=== PATIENT | male | born 2000 | race African-American/Black ===

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

== ENCOUNTER 2020-10-28 17:57 | Emergency (ER) | payer BC, OTHER ==
[~2020-10-28] VITALS: Ht 170.2 cm; Wt 65.0 kg
[~2020-10-28 17:57] MED LIST: OMEP20TA63 PO; ONDA4TAB10 SL
--- NOTE | 2020-10-28 18:53 | PHYS DOC ---
Past Medical History Past Medical History: No Pertinent History Past Surgical History: No Surgical History Smoking Status: Never Smoker Alcohol Use: None Drug Use: None General Adult EDM: Chief Complaint: SUICDAL IDEATION HPI: HPI: Patient is a 20 year old -[place] male with histories of alcohol depe ndence, tobacco use disorder, with previous attempt of suicide by taking a handful of pills, presents for suicidal ideation with a plan. According to the patient and his father patient had chronic history of alcohol dependence and was in a rehabilitation facility in [place] for a month in September and just came back around a week ago. She reports that he wants to get better and he did not touch any alcohol when he was in the rehabilitation facility. However after he came back he eats very easy to get access to alcohol and patient has been drinking every day nonstop. Patient reports that earlier today he drank a bottle of vodka and a few bottles of beer. Patient states he has thoughts of shooting himself in the head. About a month ago patient had taken a handful of pills try to commit suicide but he ended up throwing everything up. Patient denies any current medication used, endorses tobacco use, denies any recreational substance use. In addition patient reports 3-day history of left- sided pain alongside of his lateral rib. Patient denies any recent trauma, and reports that the pain just comes on spontaneously. Patient denies fever, chills, shortness of breath, abdominal pain, diarrhea constipation, or, dysuria. Patient is his own historian. Father is at bedside. Review of Systems: Review of Systems: Review of systems: Constitutional symptoms- No fever, no chills. Eyes- No Discharge, No Visual Loss Respiratory symptoms- No shortness of breath, No wheezing, No Dyspnea on Exertion Cardiovascular Systems; No chest pain, No Palpitations, No syncope Gastrointestinal symptoms: NO abdominal pain, no nausea, no vomiting or diarrhea. Genitourinary symptoms: No dysuria. Musculoskeletal symptoms: No back pain No extremity pain, patient endorsed left-sided pain along his rib cage. NEUROLOGICAL Symptoms: No headache, no generalized weakness; No focal Weakness Psychiatric: Endorses SI with a plan, denies HI Heart Score: C/O Chest Pain: No Risk Factors: Risk Factors: DM, Current or recent (<one month) smoker, HTN, HLP, family history of CAD, obesity. Risk Scores: Score 0 - 3: 2.5% MACE over next 6 weeks - Discharge Home Score 4 - 6: 20.3% MACE over next 6 weeks - Admit for Clinical Observation Score 7 - 10: 72.7% MACE over next 6 weeks - Early Invasive Strategies Allergies: Allergies: Allergies Coded Allergies Type Severity Reaction Last Updated Verified No Known Drug Allergies 07/06/17 No Physical Exam: PE: General: alert, no acute distress. Skin: warm, dry and intact. Head:: Normocephalic, atraumatic. Neck: Trachea midline. Eyes: EOMI, Normal conjunctiva, No drainage CARDIOVASCULAR: Regular rate and rhythm RESPIRATORY: No respiratory distress Back: Full range of motion. MUSCULOSKELETAL: Full range of motion of bilateral upper and lower extremities. GASTROINTESTINAL: Abdomen soft without rebound or guarding. NEUROLOGICAL: Alert and noted to person, place and time. No neurological deficits observed Psychiatric: Cooperative. Patient has suicidal ideation with a plan EKG: EKG: [] Radiology/Procedures: Radiology/Procedures: [] Course & Med Decision Making: Course & Med Decision Making Pertinent Labs and Imaging studies reviewed. (See chart for details) []Patient was evaluated by PAT team. Patient with a safety plan that has been put in place. Patient CURRENTLY denies current SI thoughts. (2038) Patient did state he had access to gun---- family member has retrieved gun. Patient NO LONGER has access to firearm. Patient will be discharged charged home to [facility] where she can watch him until his flight to rehab tomorrow afternoon. Patient initial flight to [place] reh tomorrow 5pm -- flight has been changed to 3pm. Patient will be discharged home in care of father with plan to have patient stay at [facility] until 3pm flight. Mariel Disclaimer: Mariel Disclaimer: This electronic medical record was generated, in whole or in part, using a voice recognition dictation system. Departure Departure Impression: Primary Impression: Suicidal ideation Additional Impression: Intoxication Disposition: 01 DC HOME SELF CARE/HOMELESS Condition: STABLE Referrals: NON,STAFF (PCP) Patient Instructions: Alcohol Intoxication, Suicidal Feelings, How to Help Yourself ALEX ACUÑA I DO Oct 28, 2020 18:53
[2020-10-28 19:00] VITALS: BP 149/72
[2020-10-28 19:14] LABS: BASO # 0.1 x10^3/uL (0.0-0.2); BASO % 1 % (0-3); EOS # 0.1 x10^3/uL (0.0-0.7); EOS % 1 % (0-3); HEMATOCRIT 43.7 % (39.0-53.0); HEMOGLOBIN 14.6 g/dL (13.0-17.5); LYMPH # 1.9 x10^3/uL (1.0-4.8); LYMPH % 20 % (24-48); MEAN CORPUSCULAR HEMOGLOBIN 31 pg (25-35); MEAN CORPUSCULAR HGB CONC 34 g/dL (31-37); MEAN CORPUSCULAR VOLUME 93 fL (79-100); MONO # 0.7 x10^3/uL (0.0-1.1); MONO % 7 % (0-9); NEUT # 7.1 x10^3/uL (1.8-7.7); NEUT % 72 % (31-73); PLATELET COUNT 371 x10^3/uL (140-400); RED CELL DISTRIBUTION WIDTH 12.3 % (11.5-14.5); WHITE BLOOD COUNT 9.8 x10^3/uL (4.0-11.0)
[2020-10-28 19:26] LABS: CALCIUM 8.7 mg/dL (8.5-10.1); CREATININE 1.1 mg/dL (0.7-1.3); GFR 101.3; POTASSIUM 3.6 mmol/L (3.5-5.1)
[2020-10-28 19:28] LABS: BARBITURATES NEG (NEG); BENZODIAZEPINES NEG (NEG); CANNABINOIDS NEG (NEG); COCAINE NEG (NEG); METHADONE NEG (NEG); OPIATES NEG (NEG); PHENCYCLIDINE NEG (NEG)
[2020-10-28 19:31] LABS: AMPHETAMINE/METHAMPHETAMINE NEG (NEG)
[2020-10-28 19:31] LABS: SALIC < 2.8 mg/dL (2.8-20.0)
[2020-10-28 19:32] LABS: ACETAMIN < 2 mcg/ml (10-30); ALBUMIN 3.4 g/dL (3.4-5.0); ALBUMIN/GLOBULIN RATIO 0.7 (1.0-1.7); ETHANOL 334 mg/dL (0-10); TOTAL BILIRUBIN 0.5 mg/dL (0.2-1.0); TOTAL PROTEIN 8.1 g/dL (6.4-8.2)
== END 2020-10-28 21:00 | disposition home or self-care (01) ==
LOC: ER 17:57
DX: R45.851 Suicidal ideations (principal); F10.229 Alcohol dependence with intoxication, unspecified
CPT/HCPCS: 36415; 80053; 80307; 80329; 85025; 99285; G0480